=== PATIENT | male | born 1950 | race Caucasian/White ===

== ENCOUNTER 2024-07-20 16:12 | Inpatient (IN) | payer MEDICARE, SELFPAY ==
[2024-07-20] VITALS (16 sets, daily range): BP systolic 101–133; BP diastolic 49–89; BMI 27.5
[2024-07-20 10:58] LABS: % Basophils 0.1 % (0-2); % Lymphocytes 3.2 % (20.5-51.1); % Neutrophils 91.7 % (42.2-75.2); Absolute Immature Granulocytes 0.1 10^3/uL (0-0.05); Absolute Lymphocytes 0.5 10^3/uL (1.2-3.4); Absolute Monocytes 0.6 10^3/uL (0.1-0.6); Absolute Neutrophils 13.4 10^3/uL (1.4-6.5); Hemoglobin 15.2 g/dL (13.0-18.0); Mean Corp Hgb Conc. 34.5 g/dL (33.0-37.0); Mean Corpuscular Hgb 28.7 pg (27.0-31.0); Mean Platelet Volume 12.4 fL (7.4-10.4); Nucleated Red Blood Cells % 0 % (-); Platelet Count 164 10^3/uL (130-400); Red Cell Dist. Width 14.5 % (11.5-14.5); White Blood Cell Count 14.6 10^3/uL (4.8-10.8)
[2024-07-20 11:20] LABS: AST (SGOT) 29 U/L (17-59); Alkaline Phosphatase 66 U/L (38-126); Blood Urea Nitrogen 27 mg/dl (9-20); Calcium 9.1 mg/dl (8.4-10.2); Carbon Dioxide 22 mmol/L (22-30); Chloride 102 mmol/L (98-107); Glucose 277 mg/dl (70-99); Potassium 4.8 mmol/L (3.5-5.1); Sodium 136 mmol/L (135-145); Total Bilirubin 1.4 mg/dl (0.2-1.3); Total Protein 6.7 g/dl (6.3-8.2); eGFR 44.65
[2024-07-20 11:31] LABS: ALT (SGPT) 34 U/L (0-50)
--- NOTE | 2024-07-20 11:32 | ED.GENMED ---
History of Present Illness
General
Chief Complaint: Musculo-Skeletal Complaint
Source: patient and family
Exam Limitations: none
Time Seen by Provider: 07/20/24 11:18
Nursing documentation reviewed up to this point in time: agreed with
History of Present Illness
History of Present Illness:
Patient is a 73-year-old male who presents to the ER for evaluation. Patient was diagnosed with flu on Friday at urgent care. He has had fever and chills and bodyaches for the past several days. He is on Tamiflu. He complains however
increasing weakness in fact last night fell 3 times. He did hit his head and his right shoulder. He does complain of right shoulder pain. Daughter reports he seems very weak. He does have significant cardiac history and has multiple stents. He
is on aspirin Plavix and Eliquis.
Review of Systems
Review of Systems
Allergies reviewed?: Yes
All Other Systems: ROS reviewed and negative except as documented in HPI and ROS
Constitutional: Reports fever, fatigue and chills
EENT: Reports no symptoms
Respiratory: Reports trouble breathing; Denies cough
Cardiac: Reports no symptoms
ABD/GI: Reports no symptoms
: Reports no symptoms
Musculoskeletal: Reports other (right shoulder pain )
Skin: Reports no symptoms
Psychiatric: Reports no symptoms
Phy Exam
General Physical Exam
General Presentation: no apparent distress
General age: appears stated age
General Skin: warm and dry
General Habitus: normal
General Mental: alert
General Hydration: dry mucous membranes
Course
Orders/Labs/Results
Orders:
Orders
07/20/24 Lunch
1800 calorie (15 carb) Diabetic
At Your Request: Full Participation
07/20/24 10:28
Electrocardiogram (*1) Urgent
Reason for Study: Other
Other Reason for Exam: Possible Sepsis
07/20/24 10:[address] [CT Head W/o Iv Contrast] Urgent
Comment:
Reason For Exam: fall on eliquis
EKG- Treatment ONCE
07/20/24 10:30
Cervical Spine wo Contrast CT [CT Cervical Spine W/o Iv Contr] Urgent
Comment:
Reason For Exam: fall
Shoulder, Right 2 Views [CR Shoulder - Right Min 2 View] Urgent
Comment:
Reason For Exam: fall
07/20/24 10:39
Complete Blood Count/With Diff Urgent
Comprehensive Metabolic Panel Urgent
Troponin I Urgent
07/20/24 11:33
IV Insert/Care/Rem.- Treatment PRN
0.9% Sodium Chloride 1000 ml [Nss] 1,000 ml IV BOLUS
07/20/24 11:48
EKG [Electrocardiogram (*1)] Urgent
Reason for Study: Other
Other Reason for Exam: admission, repeat elevated trop
07/20/24 11:51
EKG- Treatment ONCE
07/20/24 11:52
Chest [CR Chest - 2 Views ] Urgent
Comment:
Reason For Exam: weak fever flu
07/20/24 12:45
COVID-19 Antigen Urgent
Source: Nasal Swab
Influenza A+B Rapid Molecular Urgent
CHARMAINE Source: Nasal Swab
Specimen Description:
07/20/24 13:43
Morphine Sulfate 2 mg IV NOW STA
Morphine Sulfate See Dose Instructions .ROUTE .STK-MED ONE
07/20/24 13:47
Acetaminophen [Tylenol] 650 mg PO NOW STA
07/20/24 13:48
Acetaminophen [Tylenol] 650 mg .ROUTE .STK-MED ONE
07/20/24 14:59
CefTRIAXone [Rocephin] 1,000 mg IV NOW STA
07/20/24 15:00
Azithromycin 500 mg/250 ml [Zithromax Infusion] 500 mg in 250 ml IV NOW
07/20/24 15:06
Lactic Acid Q4H
Comment: CANCEL 2nd LACTIC ACID IF 1st LACTIC ACID IS LESS THAN 2
Troponin I Urgent
Blood Culture Q30M
CHARMAINE Source: Blood/Venous
Specimen Description:
Blood Culture Q30M
CHARMAINE Source: Blood/Venous
Specimen Description:
07/20/24 15:37
Admit/Transfer Patient As Directed
Co-Sign Provider:
Level of Care: Inpatient admission
Assign to:: Telemetry
Physician / Group: ryan bianchi
Diagnosis: Pneumonia/flu
Reason for Telemetry: Arrhythmia
Date to Stop Telemetry: 07/23/24
Time to Stop Telemetry: 11:00
Reason for Hospitalization: Pneumonia
Flu
Elevated troponin
Expected length of stay greater than two midnights?: Yes
ELOS- Estimated Length of Stay in days: 2
I certify the patient meets the requirements for IP care: Yes
07/20/24 15:38
PRN Pain Medication Management As Directed
May give lesser potent ordered pain med per pt: Yes
preference::
Protocol:: Medication orders for pain may be administered in a
manner that supports deferring to patient preference
when the pt is:
- Requesting an ordered lesser potent pain medication.
Least to most potent pain medications are defined
as: acetaminophen < NSAID < tramadol < opioids
(morphine, oxycodone, hydromorphone).
- Requesting a lesser dose of the same medication IF
ORDERED.
- Requesting a less intrusive route of administration
if both routes are prescribed by the provider (PO <
IV).
07/20/24 15:41
Code Status As Directed
Resuscitation Status: Full Code
07/20/24 15:51
Echo 2D MMode Color/Doppler Routine
Reason for Study: Elevated troponin
07/20/24 16:06
Morphine Sulfate 2 mg IV Q4HPRN PRN
07/20/24 17:22
UA Reflex to Culture [Urinalysis Reflex To Culture] Routine
Date Specimen was Collected: 07/20/24
Time Specimen was Collected: 17:02
07/20/24 18:04
0.9% Sodium Chloride 1000 ml [Nss] 1,000 ml IV 80 mls/hr
Acetaminophen [Tylenol] 650 mg PO Q4HPRN PRN
Bisacodyl [Dulcolax] 10 mg RECTAL [id number] PRN
Dextrose 50%-Water [Dextrose 50% Syringe] 12.5 grams IV [id number] PRN
Docusate W/Senna [Senokot-S] 1 tablet PO BIDPRN PRN
Glucagon [GlucaGen] 1 mg IM PRN PRN
Insulin Aspart Corrective Low [Novolog Flexpen-Low Resistance] See Protocol SC AC
Ipratropium/Albuterol Sulfate [Duoneb] 3 ml INH R Q4HPRN PRN
Ondansetron Injectable [Zofran] 4 mg IV Q6HPRN PRN
Polyethylene Glycol Powder [Miralax] 17 grams PO DAILYPRN PRN
Rosuvastatin Calcium [Crestor] 40 mg PO QPM
07/20/24 18:04
Activity As Directed
Activity Level: As Tolerated
Bedside Glucose Monitoring As Directed
Frequency: AC&HS
Additional Instructions:: Change to q6h if pt on TPN, tube feeding or not eating
Pneumatic Compression Sleeves As Directed
Type: Knee high
Vital Signs As Directed
Frequency: Per unit guidelines
Ot Eval And Treat Routine
Pt Eval And Treat Routine
Activity Level: With Assistance
DX Deep Vein Thrombosis Video Routine
07/20/24 20:00
Apixaban [Eliquis] 5 mg PO BID
MethylPREDNISolone PF [Solu-Medrol Pf] 40 mg IV Q12H
Ranolazine Extended Release [Ranexa Extended Release] 500 mg PO BID
07/21/24 03:52
Basic Metabolic Panel IN AM
Complete Blood Count/No Diff IN AM
Glycohemoglobin (HgbA1c) IN AM
Magnesium IN AM
07/21/24 08:00
Amlodipine [Norvasc] 5 mg PO DAILY
Clopidogrel Bisulfate [Plavix] 75 mg PO DAILY
Losartan [Cozaar] 25 mg PO DAILY
07/21/24 16:00
Azithromycin 500 mg/250 ml [Zithromax Infusion] 500 mg in 250 ml IV Q24H
CefTRIAXone [Rocephin] 1,000 mg IV Q24H
07/23/24 11:00
DC Protocol for Telemetry ONCE
Abnormal Lab Results
07/20/24 07/20/24 07/20/24
10:39 13:40 15:06
WBC 14.6 H 10^3/uL
(4.8-10.8)
MPV 12.4 H fL
(7.4-10.4)
Abs Immat Gran (auto) 0.1 H 10^3/uL
(0-0.05)
Absolute Neuts (auto) 13.4 H 10^3/uL
(1.4-6.5)
Absolute Lymphs (auto) 0.5 L 10^3/uL
(1.2-3.4)
Immature Gran % 1.0 H %
(0-0.5)
Neutrophils % 91.7 H %
(42.2-75.2)
Lymphocytes % 3.2 L %
(20.5-51.1)
BUN 27 H mg/dl
(9-20)
Creatinine 1.6 H mg/dL
(0.7-1.3)
Glucose 277 H mg/dl
(70-99)
Total Bilirubin 1.4 H mg/dl
(0.2-1.3)
Troponin I 0.130 H* ng/ml 0.136 H* ng/ml
POC Glucose 197 H mg/dl
(70-99)
07/20/24 10:39
07/20/24 10:39
Vital Signs
Initial and Last Documented VS:
Initial Vital Signs
Temp Pulse Resp BP Pulse Ox
99.4 F 80 16 129/60 96
07/20/24 10:22 07/20/24 10:22 07/20/24 10:22 07/20/24 10:22 07/20/24 10:22
Last Documented Vital Signs
Temp Pulse Resp BP Pulse Ox
98.5 F 79 18 115/62 93
07/22/24 16:14 07/22/24 16:14 07/22/24 15:11 07/22/24 15:11 07/22/24 16:14
Induction Heating Equipment Setter consulted with Physician
Induction Heating Equipment Setter consulted with physician?: Yes
Name of Physician Consulted: Jose Luis
MDM/Problems Addressed
Differential Diagnosis Includes:
Not limited to influenza dehydration pneumonia fx
MDM/Problems Addressed:
Patient is a 73-year-old male presents to the ER for evaluation. Patient was diagnosed with flu at urgent care. He has not had a fever for the past several days and was prescribed Tamiflu. He however complains of feeling chills and continues with
weakness. In fact patient fell several times because of weakness. Patient presents with no obvious head injury. CT negative. He does complain of right shoulder pain but reports this pain was there prior to his fall. No acute findings of trauma
on chest x-ray however there is a pneumonia found at the right base.
Patient was found to be febrile here at a temperature of 101.5 with a white count of 14.6 given Tylenol feeling better. He was given fluids. His hemoglobin is stable. His creatinine is elevated 1.6 again he was hydrated but no prior labs for
comparison in addition his cardiac troponin is elevated however he has not having chest pain. Possible stress response versus myocarditis considered. will repeat trop and plan for admission.
*Radiology
Radiology exam reviewed: radiology read reviewed
*Pulse Oximetry
Patient hypoxic: no
*Critical Care Note
Total Time (30-74mins, 75-104mins- exclusive of procedures): Not Applicable
ED Attending Note
-
Portions of this chart may have been created with voice recognition software.� Occasional wrong word or��sound alike� substitutions may have occurred due to the inherent limitations of voice recognition software.
Discharge Plan
Departure
Patient Disposition: Admit
Date of Disposition: 07/20/24
Time of Disposition: 15:05
Admit to: Telemetry
Admit to doctor: hospitalist
Presentation/result/management discussed w/ accepting MD/DO: Hospitalist
Patient with high blood pressure during this ER visit?: No
Condition: Fair
Covid-19: Negative COVID-19
Discharge Problem:
Pneumonia, Elevated troponin, Acute renal insufficiency
Interventions
Interventions:
*Risk Screen - Suicide Last Done: 07/20/24 10:22
*Neglect/Abuse Screening Last Done: 07/20/24 10:22
*ED- Fall Risk Assessment Last Done: 07/20/24 13:34
*ED COVID-19 Vaccine History Last Done: 07/20/24 19:41
*Nursing Disposition Last Done: 07/21/24 18:03
ED-Musculoskeletal Assessment Last Done: 07/20/24 13:34
Discharge Date and Time
Discharge Date/Time: 07/21/24 18:03
[2024-07-20] MEDS: NSS 1000 IV ×2 (12:30→22:45)
[2024-07-20 13:17] LABS: COVID-19 Antigen Negative (Negative)
[2024-07-20 13:42] LABS: Glucose - Point of Care 197 mg/dl (70-99)
[2024-07-20] MEDS: TYLENOL 650 MG PO ×2 (13:50→19:33)
--- NOTE | 2024-07-20 15:11 | HPS.HSE ---
Family Physician
-
Family Physician: [place]
Chief Complaint
-
Increased weakness/fall
History of Present Illness
Patient is a pleasant 73 years old with history of diabetes, hypertension, BPH, A-fib coronary artery disease , who was recently diagnosed with the flu on Friday at urgent care and started on Tamiflu.
Patient has had fever, chills, body aches.
Patient came to the ER today with increased weakness and fall 3 times, denies hitting his head.
Also he was having right shoulder pain
Patient seen and examined at bedside, patient looks tired and confused, complaining of right shoulder pain.
Denies of chest pain or shortness of breath, very mild coughing.
History taken from the patient and family( and daughter at bedside), patient diagnosed with flu on Friday and started Tamiflu, steroid as outpatient.
Has multiple falls at home and he hit his right shoulder.
Patient was having right shoulder pain before fall but worsening after fall.
CT head, cervical spine, x-ray shoulder shows no acute finding.
Chest x-ray right basilar airspace disease.
Medical History
Past Medical History
Past Medical History: Reports Arrhythmia, CAD, HTN, Hypercholesterolemia and NIDDM
Past Surgical History: Reports Cardiac
Social History
Tobacco: Non-smoker
Alcohol: None
Personal:
Living: With Family
Family History
Family History: Not pertinent
Allergies / Home Medications
Allergies reflects when Allergies were last updated in [employer].
Home Medications with original date entered in [employer]
Allergy/Medication List:
Allergies
Allergy/AdvReac Type Severity Reaction Status Date / Time
No Known Allergies Allergy Unverified 07/20/24 10:22
Home Medications
acetaminophen 325 mg tablet (Tylenol) 650 mg PO Q6HPRN PRN mild pain 07/20/24
amlodipine 5 mg tablet (Norvasc) 5 mg PO DAILY 07/20/24
apixaban 5 mg tablet (Eliquis) 5 mg PO BID 07/20/24
clopidogrel 75 mg tablet (Plavix) 75 mg PO DAILY 07/20/24
empagliflozin 25 mg tablet (Jardiance) 25 mg PO DAILY 07/20/24
ezetimibe 10 mg tablet (Zetia) 10 mg PO QPM 07/20/24
losartan 25 mg tablet 25 mg PO DAILY 07/20/24
metformin 500 mg tablet 1,000 mg PO BID 07/20/24
methylprednisolone 4 mg tablets in a dose pack (Medrol (Raj)) 0 mg PO PER PKG DIR 07/20/24
oseltamivir 75 mg capsule (Tamiflu) 75 mg PO BID 07/20/24
ranolazine 500 mg tablet,extended release,12 hr 500 mg PO BID 07/20/24
rosuvastatin 40 mg tablet (Crestor) 40 mg PO QPM 07/20/24
Review of Systems
-
A 12 point ROS was completed and negative except as noted: Yes
Constitutional: Reports Fever, Fatigue and Sleep Disturbance; Denies Weight Gain or Weight Loss
EENT: Denies Tearing, Sore Throat, Mouth Pain, Mouth Swelling or Runny Nose
Respiratory: Reports Cough; Denies Hemoptysis or Trouble Breathing
Cardiac: Denies Chest Pain, Diaphoresis, Palpitations or Syncope
Abdomen/GI: Denies Abdominal Pain, Nausea, Vomiting, Diarrhea, Constipated, Bloody Stools or Black Stools
: Reports Frequency and Incontinence; Denies Dysuria, Flank Pain, Difficulty Voiding, Urgency, Bleeding or Dark Urine
Musculoskeletal: Reports Joint Pain, Muscle Pain and Muscle Stiffness; Denies Joint Swelling or Edema
Skin: Denies Itching or Rash
Neurological: Reports Weakness; Denies Dizzy, Headache or Numbness
Endocrine: Denies Polyuria, Polydipsia or Temp Intolerance
Hematologic/Lymphatic: Denies Bleeding, Swollen Glands or Bruising
Psych: Reports Calm; Denies Depression, Anxiety or Panic Disorder
Physical Exam
Vital Signs
Vital Signs
Temp Pulse Resp BP Pulse Ox
101.5 F H 81 16 101/59 94
07/20/24 14:49 07/20/24 14:49 07/20/24 14:49 07/20/24 14:49 07/20/24 14:49
Physical Exam
General: Well Developed, Well Nourished, Appears in Distress, Pain and Good Appetite; No Chills or Sweats
HEENT: NormoCephalic, Moist mucous membranes, Atraumatic, Good Dentition, PERRLA, Nose Appears Normal and Ears Appear Normal
Respiratory: Rales, Rhonchi and Crackles
Cardiac: S1/S2 and Irregular Rhythm
Breast: Deferred by me
GI: Soft, Non Tender, Non Distended and Normal Bowel Sounds
Genito-urinary: Deferred by me
Musculoskeletal: No Clubbing, No Cyanosis and No Edema
Skin: Warm; No Rash, Jaundice, Ulcers, Lesions or Decubitus Ulcers
Neuro: Awake, Alert, Oriented, AO x 3, No Motor Deficits, Nonfocal/grossly intact and Cranial Nerves Intact
Hematologic/Lymphatic: No Lymphadenopathy
Psych: Calm
Laboratory Results
-
07/20/24 10:39
07/20/24 10:39
Laboratory Results
Total Bilirubin 1.4 mg/dl (0.2-1.3) H 07/20/24 10:39
AST 29 U/L (17-59) 07/20/24 10:39
ALT 34 U/L (0-50) 07/20/24 10:39
Alkaline Phosphatase 66 U/L (38-126) 07/20/24 10:39
Troponin I 0.130 ng/ml H* 07/20/24 10:39
Data Reviewed
-
Diagnostic Radiology: Report Reviewed by me
CT Scan: Report Reviewed by me
Medical Tests (Nuc Med, Echo, EKG etc): Report Reviewed by me
Lab Data: Labs Reviewed by me
Old Records: Reviewed
Impression/Plan
-
IMPRESSION:
Patient is a pleasant 73 years old with history of diabetes, hypertension, BPH, A-fib, coronary artery disease , who was recently diagnosed with the flu on Friday at urgent care and started on Tamiflu.
Patient came to the ER status post fall, weakness, right shoulder pain found to have pneumonia, elevated troponin.
Assessment/plan:
Severe sepsis with acute organ dysfunction secondary to flu/bacterial pneumonia.
Acute organ dysfunction in form of acute metabolic encephalopathy
Patient meets sepsis criteria on admission
WBCs 14.6
Temperature 102.9
Source of infection is flu/bacterial
Started on IV fluid
IV antibiotic in form of Rocephin/Zithromax
Blood culture pending
Urine culture pending
Tylenol for fever
Status post fall with right shoulder pain
Imaging including right shoulder x-ray shows no acute fracture.
CT head and cervical spine shows no acute finding.
Fall precautions.
PT/OT consult.
Social service for discharge planning.
Right shoulder pain
Negative x-ray right show
Possible rotator cuff tear
Will order MRI right shoulder once more stable
Consider Ortho consult versus follow-up with orthopedic
Elevated troponin
Possible type II [place]
Patient denies chest pain
Also with recent flu illness could be myocarditis.
Continue to follow troponin.
Echocardiogram ordered
History of coronary artery disease status post stent
No chest pain.
Echocardiogram ordered.
Continue Plavix/statin
Atrial flutter with controlled heart rate
Continue Eliquis
History of diabetes mellitus
Hold metformin for now and Jardiance
Insulin sliding scale
Diabetic diet
Hemoglobin A1c
CODE STATUS: Full code
DVT prophylaxis: Eliquis
Diet: Diabetic diet.
Total time spent on today's encounter was 75 minutes which included time spent in counseling the patient/family regarding diagnosis and treatment plan as listed above, goals of care, and symptom management. Case was discussed with nursing staff,
specialists, and care coordinators/case management. All labs and imaging personally reviewed by me. Remainder the time spent in detailed review of previous records, lab data, imaging, and other medical provider documentation.
[2024-07-20 15:27] LABS: Lactic Acid 1.8 mmol/L (0.7-2.0)
[2024-07-20 15:42] LABS: Troponin I 0.136 ng/ml
[2024-07-20] MEDS: ROCEPHIN 1000 MG IV (15:44)
[2024-07-20] MEDS: ZITHROMAX INFUSION 250 IV (15:44)
[2024-07-20 17:37] LABS: Urine Albumin 3+ (Neg - Trace); Urine Bilirubin Negative (Negative); Urine Character Clear (Clear); Urine Color Yellow; Urine Glucose 4+ (Negative); Urine Ketone 2+ (Negative); Urine Leukocyte Negative (Negative); Urine Nitrite Negative (Negative); Urine Occult Blood 2+ (Negative); Urine Specific Gravity 1.015 (<1.030); Urine Urobilinogen Negative (Neg - 1+)
[2024-07-20 17:45] LABS: Urine Squamous Cell 0-2 /LPF (Few)
[2024-07-20 17:46] LABS: Urine White Cell 0-2 /HPF (0-5)
[2024-07-20 17:47] LABS: Urine Bacteria Many (Negative)
[2024-07-20 18:20] LABS: Glucose - Point of Care 392 mg/dl (70-99)
[2024-07-20] MEDS: ELIQUIS 5 MG PO (19:33)
[2024-07-20 19:53] LABS: Glucose - Point of Care 323 mg/dl (70-99)
[2024-07-20] MEDS: NOVOLOG FLEXPEN-LOW RESISTANCE SC (22:40)
[2024-07-20] MEDS: CRESTOR 40 MG PO (22:44)
[2024-07-20] MEDS: TAMIFLU 30 MG PO (22:44)
[2024-07-20] MEDS: RANEXA EXTENDED RELEASE 500 MG PO (22:44)
[2024-07-20] MEDS: SOLU-MEDROL PF 40 MG IV (22:44)
[2024-07-20 22:59] LABS: Glucose - Point of Care 214 mg/dl (70-99)
[2024-07-20] MEDS: ZETIA 10 MG PO (23:13)
[2024-07-21] VITALS (19 sets, daily range): BP systolic 100–127; BP diastolic 52–67; PULSE 77; O2SAT 95–97
[2024-07-21] MEDS: MORPHINE SULFATE 2 MG IV (00:42)
[2024-07-21] MEDS: TYLENOL 650 MG PO ×3 (03:50→23:11)
[2024-07-21 04:20] LABS: Hematocrit 38.7 % (39.0-52.0); Hemoglobin 13.4 g/dL (13.0-18.0); Mean Corp Hgb Conc. 34.6 g/dL (33.0-37.0); Mean Corpuscular Hgb 28.8 pg (27.0-31.0); Mean Platelet Volume 12.2 fL (7.4-10.4); Platelet Count 129 10^3/uL (130-400); Red Blood Cell Count 4.66 10^6/uL (4.70-6.10); Red Cell Dist. Width 14.6 % (11.5-14.5); White Blood Cell Count 14.3 10^3/uL (4.8-10.8)
[2024-07-21 04:32] LABS: Blood Urea Nitrogen 29 mg/dl (9-20); Calcium 8.2 mg/dl (8.4-10.2); Carbon Dioxide 18 mmol/L (22-30); Chloride 106 mmol/L (98-107); Estimated Creatinine Clearance 40 ml/min; Glucose 220 mg/dl (70-99); Magnesium 2.3 mg/dl (1.6-2.3); Potassium 4.9 mmol/L (3.5-5.1); Sodium 135 mmol/L (135-145); eGFR 52.41
[2024-07-21 06:45] LABS: Troponin I 0.189 ng/ml
--- NOTE | 2024-07-21 07:00 | PTCARENOTE ---
Pt's troponin 0.189, asymptomatic. House BRILLIANDEER LOOPER made aware. Report given to day shift.
[2024-07-21 08:26] LABS: Glucose - Point of Care 211 mg/dl (70-99)
[2024-07-21] MEDS: NORVASC 5 MG PO (08:40)
[2024-07-21] MEDS: COZAAR 25 MG PO (08:40)
[2024-07-21] MEDS: PLAVIX 75 MG PO (08:40)
[2024-07-21] MEDS: TAMIFLU 30 MG PO ×2 (08:40→21:05)
[2024-07-21] MEDS: RANEXA EXTENDED RELEASE 500 MG PO ×2 (08:40→21:04)
[2024-07-21] MEDS: ELIQUIS 5 MG PO ×2 (08:40→21:05)
[2024-07-21] MEDS: SOLU-MEDROL PF 40 MG IV (08:40)
[2024-07-21] MEDS: NOVOLOG FLEXPEN-LOW RESISTANCE 2 UNITS SC (08:41)
[2024-07-21 09:05] LABS: Glycohemoglobin (HgbA1c) 7.2 % (4.0-5.6)
--- NOTE | 2024-07-21 10:50 | PTCARENOTE ---
Pt AOx3/conversive/pleasant. Pt states he is feeling much better today. Able to wean off oxygen and is currently 96% room air. Pt ate 100% of breakfast.
--- NOTE | 2024-07-21 11:30 | W.PN.HOSP.TC ---
Today's Communication/Plan
-
MRI right shoulder
Assessment / Plan
Assessment / Plan
Impression:
Patient is a pleasant 73 years old with history of diabetes, hypertension, BPH, A-fib, coronary artery disease , who was recently diagnosed with the flu on Friday at urgent care and started on Tamiflu.
Patient came to the ER status post fall, weakness, right shoulder pain found to have pneumonia, elevated troponin.
echo shows:
1. Left ventricle: Normal size and function with an estimated ejection
fraction of 50%. Mild inferolateral hypokinesis. Mild concentric LVH. Stage
I diastolic dysfunction
2. Right ventricle: Normal
3. Atria: Moderate left atrial dilation and mild right atrial dilation
4. Mitral valve: Mild mitral regurgitation
5. Aortic valve: Trileaflet. Aortic valve sclerosis. Trace aortic
insufficiency
6. Tricuspid valve: Mild to moderate tricuspid regurgitation with estimated
pulmonary artery systolic pressures of 55-60 mmHg consistent with moderate
pulmonary hypertension
7. No prior study for comparison
Assessment/plan:
Severe sepsis with acute organ dysfunction secondary to flu/bacterial pneumonia.
Acute organ dysfunction in form of acute metabolic encephalopathy
Patient meets sepsis criteria on admission
WBCs 14.6
Temperature 102.9
Source of infection is flu/bacterial
Started on IV fluid
IV antibiotic in form of Rocephin/Zithromax
Blood culture pending
Urine culture pending
Tylenol for fever
Status post fall with right shoulder pain
Imaging including right shoulder x-ray shows no acute fracture.
CT head and cervical spine shows no acute finding.
Fall precautions.
PT/OT consult.
Social service for discharge planning.
Right shoulder pain
Negative x-ray right show
Possible rotator cuff tear
Will order MRI right shoulder.
Consider Ortho consult versus follow-up with orthopedic
Elevated troponin
Possible type II [place]
Patient denies chest pain
Also with recent flu illness could be myocarditis.
Continue to follow troponin.
Echocardiogram shows:
1. Left ventricle: Normal size and function with an estimated ejection
fraction of 50%. Mild inferolateral hypokinesis. Mild concentric LVH. Stage
I diastolic dysfunction
2. Right ventricle: Normal
3. Atria: Moderate left atrial dilation and mild right atrial dilation
4. Mitral valve: Mild mitral regurgitation
5. Aortic valve: Trileaflet. Aortic valve sclerosis. Trace aortic
insufficiency
6. Tricuspid valve: Mild to moderate tricuspid regurgitation with estimated
pulmonary artery systolic pressures of 55-60 mmHg consistent with moderate
pulmonary hypertension
7. No prior study for comparison
History of coronary artery disease status post stent
No chest pain.
Echocardiogram ordered.
Continue Plavix/statin
Atrial flutter with controlled heart rate
Continue Eliquis
History of diabetes mellitus
Hold metformin for now and Jardiance
Insulin sliding scale
Diabetic diet
Hemoglobin A1c 7.2
CODE STATUS: Full code
DVT prophylaxis: Eliquis
Diet: Diabetic diet.
Family communication: Discussed with and daughter at bedside
Disposition: Continue antibiotic, MRI right shoulder
Total time spent on today's encounter was 65 minutes which included time spent in counseling the patient/family regarding diagnosis and treatment plan as listed above, goals of care, and symptom management. Case was discussed with nursing staff,
specialists, and care coordinators/case management. All labs and imaging personally reviewed by me. Remainder the time spent in detailed review of previous records, lab data, imaging, and other medical provider documentation.
Anticipated Discharge: 24 - 48 hours
Subjective/Interval History
-
Date of Service: July 21, 2024
Patient seen and examined at bedside, denies any chest pain , shortness of breath Improved, no abdominal pain, no nausea, no vomiting, no diarrhea or constipation.
Discussed with at bedside.
Objective Data
-
Labs:
Laboratory Results
07/21/24
03:52
WBC 14.3 H
Hgb 13.4
Hct 38.7 L
Plt Count 129 L D
Sodium 135
Potassium 4.9
Chloride 106
Carbon Dioxide 18 L
BUN 29 H
Creatinine 1.4 H
Glucose 220 H
Calcium 8.2 L
Vital Signs:
Vital Signs
Temp Pulse Resp BP Pulse Ox
98.3 F 75 16 125/67 96
07/21/24 10:49 07/21/24 10:49 07/21/24 10:49 07/21/24 10:49 07/21/24 10:49
I&O
07/20/24 07/21/24 07/22/24
06:59 06:59 06:59
Output Total 400 / 400 250 / 250
Balance -400 / -400 -250 / -250
Physical Exam
-
General: Well Developed, Well Nourished, No Apparent Distress and Comfortable
HEENT: Normocephalic, Atraumatic, Moist Mucous Membranes, No Ptosis, PERRLA and Nose Appears Normal
Respiratory: Rales, Rhonchi and Crackles
Cardiac: Regular Rhythm and S1/S2
Breast: Deferred by me
GI: Soft, Nontender, Nondistended and Normal Bowel Sounds
Genito-urinary: No Costovertebral Tender
Musculoskeletal: No Clubbing, No Cyanosis and Other (Right shoulder pain with limitation of range of movement)
Skin: Warm
Neuro: Awake, Alert, Oriented, AO x 3 and No Motor Deficits
Psych: Calm
Data Reviewed
-
Diagnostic Radiology: Image personally visualized and interpreted and Report Reviewed by me
CT Scan: Image personally visualized and interpreted and Report Reviewed by me
Ultrasound: Image personally visualized and interpreted and Report Reviewed by me
MRI: Image personally visualized and interpreted and Report Reviewed by me
Medical Tests (Nuc Med, Echo etc): Image personally visualized and interpreted and Report Reviewed by me
Labs: Labs Reviewed by me
Old Records: Reviewed
[2024-07-21 12:31] LABS: Glucose - Point of Care 354 mg/dl (70-99)
[2024-07-21] MEDS: NSS 1000 IV (12:42)
[2024-07-21] MEDS: NOVOLOG FLEXPEN-LOW RESISTANCE 5 UNITS SC (12:42)
--- NOTE | 2024-07-21 12:43 | CM ---
CM met with pt and spouse bedside- pt slept through meeting
Pt and spouse reside in a 2[address] with 2STE, 1st floor setup
Pt is indep at baselines
Denies DMEs and financial insecurities
Pt is indep with his ADLs, drives+
No hx with VN/SNF
Typically receives care at [facility]
PCP- [place]
Rx- [facility]
VN recs by therapy
Referral to [facility] per spouse request
Pt will likely need new WW issued prior to dc
Discharge Disposition- home with [facility], likely new WW as well
[2024-07-21] MEDS: DUONEB 3 ML INH (14:34)
--- NOTE | 2024-07-21 14:38 | PTCARENOTE ---
Pt feeling sob, SPO2 down to 88%, audible expiratory wheezing. Placed back on nasal cannula at 2L and given neb treatment. Pt also w/ temp of 101 - tylenol given.
[2024-07-21 15:28] LABS: Troponin I 0.086 ng/ml
[2024-07-21] MEDS: ZITHROMAX INFUSION 250 IV (15:52)
[2024-07-21] MEDS: ROCEPHIN 1000 MG IV (15:52)
[2024-07-21 17:30] LABS: Glucose - Point of Care 346 mg/dl (70-99)
[2024-07-21] MEDS: ZETIA 10 MG PO (18:29)
[2024-07-21] MEDS: CRESTOR 40 MG PO (18:29)
[2024-07-21] MEDS: NOVOLOG FLEXPEN-LOW RESISTANCE 4 UNITS SC (18:30)
[2024-07-21] MEDS: MELATONIN 5 MG PO (21:04)
[2024-07-21 21:32] LABS: Troponin I 0.065 ng/ml
[2024-07-21 21:57] LABS: Glucose - Point of Care 353 mg/dl (70-99)
[2024-07-22 03:00] VITALS: BP 114/69
[2024-07-22] MEDS: NSS 1000 IV (06:10)
[2024-07-22] MEDS: TYLENOL 650 MG PO ×3 (06:11→18:43)
--- NOTE | 2024-07-22 06:28 | PTCARENOTE ---
Pt c/o being cold. Rigors. Oral temp 98.0. c/o R shoulder pain. Tylenol administered (refer to [facility]). NSS at 80 via #22 RH. Call ute w/in reach.
[2024-07-22 07:18] VITALS: BP 125/62
[2024-07-22 07:34] LABS: Glucose - Point of Care 256 mg/dl (70-99)
[2024-07-22] MEDS: DUONEB 3 ML INH ×2 (07:35→14:11)
[2024-07-22] MEDS: COZAAR 25 MG PO (08:15)
[2024-07-22] MEDS: RANEXA EXTENDED RELEASE 500 MG PO ×2 (08:15→19:51)
[2024-07-22] MEDS: ELIQUIS 5 MG PO ×2 (08:15→19:51)
[2024-07-22] MEDS: TAMIFLU 30 MG PO ×2 (08:16→19:51)
[2024-07-22] MEDS: PLAVIX 75 MG PO (08:16)
[2024-07-22 08:30] LABS: Hemoglobin 13.9 g/dL (13.0-18.0); Mean Corp Hgb Conc. 34.8 g/dL (33.0-37.0); Mean Corpuscular Hgb 28.4 pg (27.0-31.0); Mean Corpuscular Volume 81.6 fL (80.0-94.0); Mean Platelet Volume 12.6 fL (7.4-10.4); Platelet Count 141 10^3/uL (130-400); Red Cell Dist. Width 14.9 % (11.5-14.5); White Blood Cell Count 12.8 10^3/uL (4.8-10.8)
[2024-07-22 08:54] LABS: Troponin I 0.068 ng/ml
--- NOTE | 2024-07-22 09:09 | PN.CDI ---
CDI
- -
CDI:
Physician Documentation Request
Admit Date: 07/20/24 16:12
Dear Doctor Charity,
Please review the following and provide your response in the progress notes.
Clinical Indicators:
The diagnosis of bifascicular block was included in the signed 07/20 EKG
- 07/20 EKG 'Atrial flutter with 3:1 A-V conduction'
- 'Right bundle branch block'
- 'Left Anterior Fascicular block'
- 'Bifascicular block'
Please indicate in your progress notes if you are in agreement that the above diagnosis is valid for this patient:
____ - Bifascicular block is a valid diagnosis (Please include it in your progress notes)
____ - Bifascicular block is not a valid diagnosis for this patient
____ - Other
Use of terms such as suspected, likely, concern for, or probable are acceptable for a diagnosis that is being evaluated, monitored or treated as if it exists and can be coded in the inpatient setting, when documented at the time of discharge.
Thank you,
Jaime Williamson RN
CDI Specialist
Please use your independent medical judgment in providing your response.
[2024-07-22 09:19] LABS: Blood Urea Nitrogen 42 mg/dl (9-20); Calcium 7.9 mg/dl (8.4-10.2); Carbon Dioxide 19 mmol/L (22-30); Chloride 105 mmol/L (98-107); Estimated Creatinine Clearance 43 ml/min; Glucose 247 mg/dl (70-99); Potassium 4.8 mmol/L (3.5-5.1); Sodium 134 mmol/L (135-145); eGFR 57.29
[2024-07-22] MEDS: NOVOLOG FLEXPEN-LOW RESISTANCE 3 UNITS SC (09:51)
--- NOTE | 2024-07-22 10:53 | VNURNOTE ---
Attempted to see patient around 0900, he was sound asleep. Call placed to patient's daughter, listed as primary contact. She could not talk, she asked liaison to speak with pt's , she will be visiting. Spoke w/patient's spouse. As of now,
she doesn't think pt will be homebound. She stated pt is planning on returning to work on /around Friday. Recommended that if she and patient change their mind about VN, they can follow up with PCP and he can order VN as outpt.
Pt will not be homebound, no referral placed.
[2024-07-22 11:28] VITALS: BP 127/73
[2024-07-22 11:34] LABS: Glucose - Point of Care 339 mg/dl (70-99)
--- NOTE | 2024-07-22 11:36 | W.PN.HOSP.TC ---
Today's Communication/Plan
-
Orthopedic consult.
Assessment / Plan
Assessment / Plan
Impression:
Patient is a pleasant 73 years old with history of diabetes, hypertension, BPH, A-fib, coronary artery disease , who was recently diagnosed with the flu on Friday at urgent care and started on Tamiflu.
Patient came to the ER status post fall, weakness, right shoulder pain found to have pneumonia, elevated troponin.
echo shows:
1. Left ventricle: Normal size and function with an estimated ejection
fraction of 50%. Mild inferolateral hypokinesis. Mild concentric LVH. Stage
I diastolic dysfunction
2. Right ventricle: Normal
3. Atria: Moderate left atrial dilation and mild right atrial dilation
4. Mitral valve: Mild mitral regurgitation
5. Aortic valve: Trileaflet. Aortic valve sclerosis. Trace aortic
insufficiency
6. Tricuspid valve: Mild to moderate tricuspid regurgitation with estimated
pulmonary artery systolic pressures of 55-60 mmHg consistent with moderate
pulmonary hypertension
7. No prior study for comparison
Patient continued to have right shoulder pain, orthopedic consulted
Assessment/plan:
Severe sepsis with acute organ dysfunction secondary to flu/bacterial pneumonia.
Acute organ dysfunction in form of acute metabolic encephalopathy
Patient meets sepsis criteria on admission
WBCs 14.6
Temperature 102.9
Source of infection is flu/bacterial
Started on IV fluid
IV antibiotic in form of Rocephin/Zithromax
Blood culture NTD
Urine culture NTD
Tylenol for fever
Status post fall with right shoulder pain
Imaging including right shoulder x-ray shows no acute fracture.
CT head and cervical spine shows no acute finding.
Fall precautions.
PT/OT consult.
Social service for discharge planning.
Right shoulder pain
Negative x-ray right show
Possible rotator cuff tear
Patient still having right shoulder pain and limitation of movement.
Orthopedic consulted.
Elevated troponin
Possible type II [place]
Patient denies chest pain
Also with recent flu illness could be myocarditis.
Continue to follow troponin.
Echocardiogram shows:
1. Left ventricle: Normal size and function with an estimated ejection
fraction of 50%. Mild inferolateral hypokinesis. Mild concentric LVH. Stage
I diastolic dysfunction
2. Right ventricle: Normal
3. Atria: Moderate left atrial dilation and mild right atrial dilation
4. Mitral valve: Mild mitral regurgitation
5. Aortic valve: Trileaflet. Aortic valve sclerosis. Trace aortic
insufficiency
6. Tricuspid valve: Mild to moderate tricuspid regurgitation with estimated
pulmonary artery systolic pressures of 55-60 mmHg consistent with moderate
pulmonary hypertension
7. No prior study for comparison
History of coronary artery disease status post stent
No chest pain.
Echocardiogram ordered.
Continue Plavix/statin
Atrial flutter with controlled heart rate
Continue Eliquis
History of diabetes mellitus
Hold metformin for now and Jardiance
Insulin sliding scale
Diabetic diet
Hemoglobin A1c 7.2
CODE STATUS: Full code
DVT prophylaxis: Eliquis
Diet: Diabetic diet.
Family communication: Discussed with and daughter at bedside
Disposition: Continue antibiotic, orthopedic consult.
Total time spent on today's encounter was 65 minutes which included time spent in counseling the patient/family regarding diagnosis and treatment plan as listed above, goals of care, and symptom management. Case was discussed with nursing staff,
specialists, and care coordinators/case management. All labs and imaging personally reviewed by me. Remainder the time spent in detailed review of previous records, lab data, imaging, and other medical provider documentation.
Anticipated Discharge: 24 - 48 hours
Subjective/Interval History
-
Date of Service: July 22, 2024
Patient seen and examined at bedside, at bedside, patient still complaining of right shoulder pain, orthopedic consulted.
Still with shortness of breath and coughing, patient with episodes of hypoxia required 4 L of nasal cannula and oxygen sat was 96%.
but When examined the patient who was 93% on room air.
Objective Data
-
Labs:
Laboratory Results
07/22/24 07/22/24
08:06 08:07
WBC 12.8 H
Hgb 13.9
Hct 40.0
Plt Count 141
Sodium 134 L
Potassium 4.8
Chloride 105
Carbon Dioxide 19 L
BUN 42 H
Creatinine 1.3
Glucose 247 H
Calcium 7.9 L
Vital Signs:
Vital Signs
Temp Pulse Resp BP Pulse Ox
98.3 F 78 17 127/73 96
07/22/24 11:28 07/22/24 11:28 07/22/24 11:28 07/22/24 11:28 07/22/24 11:28
I&O
07/21/24 07/22/24 07/23/24
06:59 06:59 06:59
Intake Total 800 / 800
Output Total 400 / 400 1450 / 1450
Balance -400 / -400 -650 / -650
Physical Exam
-
General: Well Developed, Well Nourished, No Apparent Distress and Comfortable
HEENT: Normocephalic, Atraumatic, Moist Mucous Membranes, No Ptosis, PERRLA and Nose Appears Normal
Respiratory: Rales, Rhonchi and Crackles
Cardiac: Regular Rhythm and S1/S2
Breast: Deferred by me
GI: Soft, Nontender, Nondistended and Normal Bowel Sounds
Genito-urinary: No Costovertebral Tender
Musculoskeletal: No Clubbing, No Cyanosis and Other (Right shoulder pain with limitation of range of movement)
Skin: Warm
Neuro: Awake, Alert, Oriented, AO x 3 and No Motor Deficits
Psych: Calm
Data Reviewed
-
Diagnostic Radiology: Image personally visualized and interpreted and Report Reviewed by me
CT Scan: Image personally visualized and interpreted and Report Reviewed by me
Ultrasound: Image personally visualized and interpreted and Report Reviewed by me
MRI: Image personally visualized and interpreted and Report Reviewed by me
Medical Tests (Nuc Med, Echo etc): Image personally visualized and interpreted and Report Reviewed by me
Labs: Labs Reviewed by me
Old Records: Reviewed
[2024-07-22] MEDS: NOVOLOG FLEXPEN-LOW RESISTANCE 4 UNITS SC (13:11)
--- NOTE | 2024-07-22 14:29 | PTCARENOTE ---
Pt c/o sob, is tachypneic, SPO2 down to 90% on 4L. Pt also w/ spike in temp to 103.1 oral. Tylenol given. RT called and pt given nebulizer but took it off after half of the treatment bc it was making him feel more sob. Pt now 92% on 5L nc.
[2024-07-22 15:11] VITALS: BP 115/62
--- NOTE | 2024-07-22 15:32 | CM ---
Chart reviewed and plan is to home with [facility] when stable.
Plan; Home no needs.
[2024-07-22] MEDS: ZITHROMAX INFUSION 250 IV (16:00)
[2024-07-22] MEDS: ROCEPHIN 1000 MG IV (16:00)
--- NOTE | 2024-07-22 16:50 | CON.ORTHO ---
Consultation
-
Date/Time Consultation Requested: 07/22/2024 1056
Date/Time Consultation Performed: 07/22/2024 1530
Requesting Provider: Van Nash
Performing Provider: Yoav Lorenz
Reason for Consultation: R shoulder pain
Consultation - Orthopedics
History
Orthopedic Surgery Note
CC: R shoulder pain
HPI: 73-year-old male presented to [facility] emergency department with weakness and falls. The patient reports about 2 weeks of right shoulder pain in the deltoid region. He has weakness with active elevation. He reports that he may have struck
the shoulder while he was falling. He denies chronic shoulder pain. No distal numbness or tingling. He is recovering from the flu is being treated by the medical team for this.
PMH/PSH: DM, HTN, BPH, afib, CAD
Medications: reviewed
Family History: Family history was reviewed. Noncontributory
Social history: Nonsmoker, no illicit drugs
Exam
General appearance: Pleasant. No acute distress.
Head: Normocephalic/atraumatic
Nose: No lesions or discharge.
Skin: No obvious rashes or open wounds
Lungs: nasal cannula in place
Musculoskeletal:
RUE:
skin intact without open wounds
no shoulder effusion
weakness with shoulder ER, abduction, and forward flexion c/w pseudoparalysis
full active elbow motion
fires r/u/m/ain/pin
sensation intact to light touch r/u/m
Fingers wwp
No tenderness over bony prominences or with passive joint ROM
Imaging:
Right shoulder x-rays performed 07/20/2024 reviewed by me. They show signs of mild glenohumeral osteoarthritis. No signs of displaced fracture. The humeral head is concentrically reduced.
Assessmen and Plan:
73-year-old male with 2 to 3 weeks of right shoulder pain along the deltoid region along with pseudoparalysis, weakness with active elevation. He has weakness with rotator cuff testing. X-rays showed no signs of fracture. We discussed that his
pain and weakness may be related to a rotator cuff tear. We discussed following up as an outpatient once he has recovered from the flu and to discuss further evaluation including likely right shoulder MRI. He may follow-up with our shoulder team
including Dr. Ramos, Dr. Issa, Dr. Avilez, or Dr. Byrd once he's medically recovered. We discussed sling for comfort. Recommend pain control with tylenol, nsaids if able.
Yoav Lorenz MD
> 75 minutes was spent reviewing the clinical information, evaluating the patient, and formulating clinical plan.
Allergies / Home Medications
Allergy/AdvReac Type Severity Reaction Status Date / Time
No Known Allergies Allergy Unverified 07/20/24 10:22
�Medication �Instructions �Recorded
acetaminophen 325 mg tablet 650 mg PO Q6HPRN PRN mild pain 07/20/24
(Tylenol)
amlodipine 5 mg tablet (Norvasc) 5 mg PO DAILY 07/20/24
apixaban 5 mg tablet (Eliquis) 5 mg PO BID 07/20/24
clopidogrel 75 mg tablet (Plavix) 75 mg PO DAILY 07/20/24
empagliflozin 25 mg tablet 25 mg PO DAILY 07/20/24
(Jardiance)
losartan 25 mg tablet 25 mg PO DAILY 07/20/24
metformin 500 mg tablet 1,000 mg PO BID 07/20/24
methylprednisolone 4 mg tablets in 0 mg PO PER PKG DIR 07/20/24
a dose pack (Medrol (Raj))
oseltamivir 75 mg capsule (Tamiflu) 75 mg PO BID 07/20/24
ranolazine 500 mg tablet,extended 500 mg PO BID 07/20/24
release,12 hr
rosuvastatin 40 mg tablet (Crestor) 40 mg PO QPM 07/20/24
cholecalciferol (vitamin D3) 50 50 mcg PO DAILY 07/21/24
mcg (2,000 unit) capsule (Vitamin
D3)
levocetirizine 5 mg tablet 5 mg PO QPM 07/21/24
nitroglycerin 0.4 mg sublingual 0.4 mg sublingual Q5M PRN chest 07/21/24
tablet pain
Vital Signs / Lab Results
Temp Pulse Resp BP Pulse Ox
98.5 F 79 18 115/62 93
07/22/24 16:14 07/22/24 16:14 07/22/24 15:11 07/22/24 15:11 07/22/24 16:14
07/22/24 08:07
07/22/24 08:06
[2024-07-22 17:56] LABS: Glucose - Point of Care 208 mg/dl (70-99)
[2024-07-22] MEDS: CRESTOR 40 MG PO (18:02)
[2024-07-22] MEDS: ZETIA 10 MG PO (18:02)
[2024-07-22] MEDS: NOVOLOG FLEXPEN-LOW RESISTANCE 2 UNITS SC (18:02)
[2024-07-22 19:40] VITALS: BP 132/70
[2024-07-22 21:33] LABS: Glucose - Point of Care 383 mg/dl (70-99)
[2024-07-22 23:00] VITALS: BP 104/58
[2024-07-23] MEDS: DUONEB 3 ML INH (01:36)
[2024-07-23] MEDS: FLUSH (NSS) 4 FLUSH IV (01:56)
[2024-07-23] MEDS: MORPHINE SULFATE 2 MG IV (01:56)
--- NOTE | 2024-07-23 02:45 | PTCARENOTE ---
episode of shortness of breath rhonchi/rales bilaterally-94% 0n 4 liters . rt gave tx. morphine given for shoulder pain. pt breathing better shoulder pain relieved
[2024-07-23 03:05] VITALS: BP 121/64
[2024-07-23 07:32] VITALS: BP 114/71
[2024-07-23 07:36] LABS: Glucose - Point of Care 226 mg/dl (70-99)
[2024-07-23] MEDS: RANEXA EXTENDED RELEASE 500 MG PO (08:02)
[2024-07-23] MEDS: NOVOLOG FLEXPEN-LOW RESISTANCE 2 UNITS SC ×2 (08:02→12:39)
[2024-07-23] MEDS: ELIQUIS 5 MG PO (08:02)
[2024-07-23] MEDS: PLAVIX 75 MG PO (08:02)
[2024-07-23] MEDS: COZAAR 25 MG PO (08:03)
[2024-07-23] MEDS: TAMIFLU 30 MG PO (08:03)
[2024-07-23] MEDS: DESENEX/MITRAZOL/ZEASORB 1 APPLIC TOPICAL (08:03)
[2024-07-23 08:08] LABS: Hematocrit 40.1 % (39.0-52.0); Hemoglobin 13.8 g/dL (13.0-18.0); Mean Corp Hgb Conc. 34.4 g/dL (33.0-37.0); Mean Corpuscular Hgb 28.5 pg (27.0-31.0); Mean Corpuscular Volume 82.7 fL (80.0-94.0); Mean Platelet Volume 12.1 fL (7.4-10.4); Platelet Count 173 10^3/uL (130-400); Red Blood Cell Count 4.85 10^6/uL (4.70-6.10); Red Cell Dist. Width 14.9 % (11.5-14.5); White Blood Cell Count 9.4 10^3/uL (4.8-10.8)
[2024-07-23 08:09] LABS: Blood Urea Nitrogen 31 mg/dl (9-20); Calcium 7.9 mg/dl (8.4-10.2); Carbon Dioxide 24 mmol/L (22-30); Chloride 102 mmol/L (98-107); Estimated Creatinine Clearance 50 ml/min; Glucose 218 mg/dl (70-99); Potassium 4.7 mmol/L (3.5-5.1); Sodium 134 mmol/L (135-145); eGFR > 60.00
--- NOTE | 2024-07-23 10:55 | CON.PUL ---
Consultation
Consultation Request
Date/Time Consultation Requested: 07/23/2024-10:30 AM
Date/Time Consultation Performed: 07/23/2024-11:30 AM
Requesting Provider: Hospitalist
Performing Provider: Dr. Martinez
Reason for Consultation: Shortness of breath
Medical History
-
Chief Complaint: Shortness of breath/Pneumonia
History of Present Illness:
73-year-old lifelong nonsmoking male with history of hypertension, hyperlipidemia, diabetes and atrial fibrillation was not vaccinated for influenza this year and presented with fevers, chills, body aches noted to have pneumonia and
influenza-pulmonary consulted for pneumonia 07/23/24. The patient feels much improved and is asking when he can go home. He offers no complaints of chest pain, shortness of breath at rest, chest congestion, productive cough, pertussis, abdominal
pain, nausea, focal weakness or lower extremity swelling.
Past Medical History
Past Medical History: None ( Hypertension. Hyperlipidemia. Diabetes. CAD. Atrial fibrillation.)
Social History
Tobacco: Non-smoker
Alcohol: None
Drug: None
Personal:
Living: With Family
Occupational Exposures: No known asbestos exposure
Environmental Exposures: . No known tuberculosis exposure
Family History
Family History: Reviewed & Not Pertinent
Allergies / Home Medications
Allergies
Allergy/AdvReac Type Severity Reaction Status Date / Time
No Known Allergies Allergy Unverified 07/20/24 10:22
Home Medications
�Medication �Instructions �Recorded �Confirmed �Last Taken �Type
acetaminophen 325 mg tablet 650 mg PO Q6HPRN PRN mild pain 07/20/24 07/21/24 07/20/24 History
(Tylenol)
amlodipine 5 mg tablet (Norvasc) 5 mg PO DAILY 07/20/24 07/21/24 Unknown History
apixaban 5 mg tablet (Eliquis) 5 mg PO BID 07/20/24 07/21/24 Unknown History
clopidogrel 75 mg tablet (Plavix) 75 mg PO DAILY 07/20/24 07/21/24 Unknown History
empagliflozin 25 mg tablet 25 mg PO DAILY 07/20/24 07/21/24 Unknown History
(Jardiance)
losartan 25 mg tablet 25 mg PO DAILY 07/20/24 07/21/24 Unknown History
metformin 500 mg tablet 1,000 mg PO BID 07/20/24 07/21/24 Unknown History
methylprednisolone 4 mg tablets in 0 mg PO PER PKG DIR 07/20/24 07/21/24 Unknown History
a dose pack (Medrol (Raj))
oseltamivir 75 mg capsule (Tamiflu) 75 mg PO BID 07/20/24 07/21/24 Unknown History
ranolazine 500 mg tablet,extended 500 mg PO BID 07/20/24 07/21/24 Unknown History
release,12 hr
rosuvastatin 40 mg tablet (Crestor) 40 mg PO QPM 07/20/24 07/21/24 Unknown History
cholecalciferol (vitamin D3) 50 50 mcg PO DAILY 07/21/24 07/21/24 Unknown History
mcg (2,000 unit) capsule (Vitamin
D3)
levocetirizine 5 mg tablet 5 mg PO QPM 07/21/24 07/21/24 Unknown History
nitroglycerin 0.4 mg sublingual 0.4 mg sublingual Q5M PRN chest 07/21/24 07/21/24 Unknown History
tablet pain
Review of Systems
-
Unable to Obtain full review of systems at this time due to: Other ( Per HPI)
Vitals / Labs / Diagnostic Testing
Vital Signs
Temp Pulse Resp BP Pulse Ox
98.3 F 82 16 114/71 94
07/23/24 07:32 07/23/24 08:03 07/23/24 07:32 07/23/24 08:03 07/23/24 08:25
Lab Data
07/23/24 07:30
07/23/24 07:30
Microbiology
07/20/24 15:06 Blood/Venous Blood Culture - Preliminary
No Growth in 48 hours- Final report to follow
07/20/24 15:06 Blood/Venous Blood Culture - Preliminary
No Growth in 48 hours- Final report to follow
07/20/24 17:22 Urine Urine Culture - Final
NO GROWTH
07/20/24 12:45 Nasal Swab Influenza Types A & B (MOSHE) - Final
Negative for Influenza A & B, NAAT
Negative results must be combined with clinical observations
and patient history.
Nucleic Acid Amplification test (NAAT)performed on the
[employer] platform.
Diagnostic Testing:
Physical Exam
-
Exam:
Well-nourished and well-developed in no apparent distress
HEENT-atraumatic, normocephalic
Neck-supple, no JVD, no bruit
Heart-regular rate and rhythm-no murmurs, rubs or gallops
Chest with image breath sounds, crackles at the right base and no wheezes
Abdomen-soft, nontender, nondistended, no hepatosplenomegaly.
Back without tenderness
Extremities-no cyanosis, clubbing, edema and good peripheral pulses
Integument-intact, no rashes, lesions or ecchymosis
Neurology-alert and oriented, nonfocal motor and sensory exam
Assessment
-
73-year-old lifelong nonsmoking male with history of hypertension, hyperlipidemia, diabetes and atrial fibrillation was not vaccinated for influenza this year and presented with fevers, chills, body aches noted to have pneumonia and
influenza-pulmonary consulted for pneumonia 07/23/24.
.
Community acquired pneumonia.
Influenza.
Status post fall/right shoulder pain.
Elevated troponin.
Leukocytosis
Mild hyponatremia.
Hyperglycemia
Conditions present prior to admission:
Hypertension.
Hyperlipidemia.
Diabetes.
CAD.
Atrial fibrillation..
BPH
Plan
Respiratory decompensation, likely due to influenza and right lower lobe community-acquired pneumonia and patient without previous lung disease.
Supplemental oxygen.
Increase activity and check ambulatory pulse oximetry prior to discharge.
Mucolytic.
Incentive spirometry.
Aspiration precautions.
Nebulizers if needed-currently not bronchospastic.
Check cultures.
Empiric anabiotic-ceftriaxone and azithromycin-finite course.
Tamiflu per protocol.
Isolation per protocol.
Follow leukocytosis.
Trend troponin.
Consider cardiology evaluation.
Echocardiogram summarized below.
Monitor blood sugar.
Insulin supplementation as needed.
DVT prophylaxis-on Eliquis
Nutrition
Early mobilization.
Outpatient follow-up with primary to ensure pneumonia resolution-and follow-up with pulmonary if patient desires
Diagnostic data:
.
Chest x-ray 07/20/24-right basilar pneumonia.
Chest x-ray 07/22/24-stable right basilar pneumonia.
Echocardiogram 07/20/24-EF 50%, mild mitral regurgitation, PA systolic 55-60
Data Reviewed
-
EKG: Report reviewed by me
Radiology: Report reviewed by me
CT Scan: Report reviewed by me
Medical Tests (Nuc Med, Echo etc): Report reviewed by me
Labs: Labs reviewed by me
Old Records: Reviewed
Total Time Spent with Patient (in minutes): 75
--- NOTE | 2024-07-23 11:04 | W.PN.HOSP.TC ---
Today's Communication/Plan
-
Pulmonary consulted, ambulatory pulse ox on exertion.
Assessment / Plan
Assessment / Plan
Impression:
Patient is a pleasant 73 years old with history of diabetes, hypertension, BPH, A-fib, coronary artery disease , who was recently diagnosed with the flu on Friday at urgent care and started on Tamiflu.
Patient came to the ER status post fall, weakness, right shoulder pain found to have pneumonia, elevated troponin.
echo shows:
1. Left ventricle: Normal size and function with an estimated ejection
fraction of 50%. Mild inferolateral hypokinesis. Mild concentric LVH. Stage
I diastolic dysfunction
2. Right ventricle: Normal
3. Atria: Moderate left atrial dilation and mild right atrial dilation
4. Mitral valve: Mild mitral regurgitation
5. Aortic valve: Trileaflet. Aortic valve sclerosis. Trace aortic
insufficiency
6. Tricuspid valve: Mild to moderate tricuspid regurgitation with estimated
pulmonary artery systolic pressures of 55-60 mmHg consistent with moderate
pulmonary hypertension
7. No prior study for comparison
Patient continued to have right shoulder pain, orthopedic consulted
Overall shortness of breath improved but still with bilateral Rales and rhonchi.
Pulmonology consulted
Assessment/plan:
Severe sepsis with acute organ dysfunction secondary to flu/bacterial pneumonia.
Acute organ dysfunction in form of acute metabolic encephalopathy
Patient meets sepsis criteria on admission
WBCs 14.6
Temperature 102.9
Source of infection is flu/bacterial
Received IV fluid
IV antibiotic in form of Rocephin/Zithromax
Blood culture NTD
Urine culture NTD
Tylenol for fever
07/23
Pulmonology consulted
Status post fall with right shoulder pain
Imaging including right shoulder x-ray shows no acute fracture.
CT head and cervical spine shows no acute finding.
Fall precautions.
PT/OT consult.
Social service for discharge planning.
07/23
Appreciate orthopedic input
Right shoulder pain
Negative x-ray right show
Possible rotator cuff tear
Patient still having right shoulder pain and limitation of movement.
Orthopedic consulted.
Follow-up as outpatient
Elevated troponin
Possible type II [place]
Patient denies chest pain
Also with recent flu illness could be myocarditis.
Continue to follow troponin.
Echocardiogram shows:
1. Left ventricle: Normal size and function with an estimated ejection
fraction of 50%. Mild inferolateral hypokinesis. Mild concentric LVH. Stage
I diastolic dysfunction
2. Right ventricle: Normal
3. Atria: Moderate left atrial dilation and mild right atrial dilation
4. Mitral valve: Mild mitral regurgitation
5. Aortic valve: Trileaflet. Aortic valve sclerosis. Trace aortic
insufficiency
6. Tricuspid valve: Mild to moderate tricuspid regurgitation with estimated
pulmonary artery systolic pressures of 55-60 mmHg consistent with moderate
pulmonary hypertension
7. No prior study for comparison
History of coronary artery disease status post stent
No chest pain.
Echocardiogram ordered.
Continue Plavix/statin
Atrial flutter with controlled heart rate
Continue Eliquis
Bifascicular block
Noted on EKG
History of diabetes mellitus
Hold metformin for now and Jardiance
Insulin sliding scale
Diabetic diet
Hemoglobin A1c 7.2
Resume oral meds on discharge.
CODE STATUS: Full code
DVT prophylaxis: Eliquis
Diet: Diabetic diet.
Family communication: Discussed with and daughter at bedside
Disposition: Pulmonary consulted, ambulatory pulse ox on exertion.
Total time spent on today's encounter was 65 minutes which included time spent in counseling the patient/family regarding diagnosis and treatment plan as listed above, goals of care, and symptom management. Case was discussed with nursing staff,
specialists, and care coordinators/case management. All labs and imaging personally reviewed by me. Remainder the time spent in detailed review of previous records, lab data, imaging, and other medical provider documentation.
Anticipated Discharge: Within 24 hours
Subjective/Interval History
-
Date of Service: July 23, 2024
Patient seen and examined at bedside, denies any chest pain , patient stated that shortness of breath Improved but still was coughing, no abdominal pain, no nausea, no vomiting, no diarrhea or constipation.
Pulmonology consulted.
Objective Data
-
Labs:
Laboratory Results
07/23/24
07:30
WBC 9.4
Hgb 13.8
Hct 40.1
Plt Count 173 D
Sodium 134 L
Potassium 4.7
Chloride 102
Carbon Dioxide 24
BUN 31 H
Creatinine 1.1
Glucose 218 H
Calcium 7.9 L
Vital Signs:
Vital Signs
Temp Pulse Resp BP Pulse Ox
98.3 F 82 16 114/71 94
07/23/24 07:32 07/23/24 08:03 07/23/24 07:32 07/23/24 08:03 07/23/24 08:25
I&O
07/22/24 07/23/24 07/24/24
06:59 06:59 06:59
Intake Total 800 / 800 1920 / 1920 200 / 200
Output Total 1450 / 1450 900 / 900 180 / 180
Balance -650 / -650 1020 / 1020 20 / 20
Physical Exam
-
General: Well Developed, Well Nourished, No Apparent Distress and Comfortable
HEENT: Normocephalic, Atraumatic, Moist Mucous Membranes, No Ptosis, PERRLA and Nose Appears Normal
Respiratory: Rales, Rhonchi and Crackles
Cardiac: Regular Rhythm and S1/S2
Breast: Deferred by me
GI: Soft, Nontender, Nondistended and Normal Bowel Sounds
Genito-urinary: No Costovertebral Tender
Musculoskeletal: No Clubbing, No Cyanosis and Other (Right shoulder pain with limitation of range of movement)
Skin: Warm
Neuro: Awake, Alert, Oriented, AO x 3 and No Motor Deficits
Psych: Calm
Data Reviewed
-
Diagnostic Radiology: Image personally visualized and interpreted and Report Reviewed by me
CT Scan: Image personally visualized and interpreted and Report Reviewed by me
Ultrasound: Image personally visualized and interpreted and Report Reviewed by me
MRI: Image personally visualized and interpreted and Report Reviewed by me
Medical Tests (Nuc Med, Echo etc): Image personally visualized and interpreted and Report Reviewed by me
Labs: Labs Reviewed by me
Old Records: Reviewed
[2024-07-23 11:25] VITALS: BP 117/67; PULSE 80; O2SAT 93
[2024-07-23 11:35] VITALS: BP 117/67
[2024-07-23 11:46] LABS: Glucose - Point of Care 243 mg/dl (70-99)
[2024-07-23 12:09] VITALS: BP 117/67
--- NOTE | 2024-07-23 14:04 | W.DCSUMMARY ---
Discharge Summary
Discharge Data
Date of Admission: 07/20/24
Date of Discharge: 07/23/24
-
Pending Results: No
Hospital Course
Hospital course
Patient is a pleasant 73 years old with history of diabetes, hypertension, BPH, A-fib, coronary artery disease , who was recently diagnosed with the flu on Friday at urgent care and started on Tamiflu.
Patient came to the ER status post fall, weakness, right shoulder pain found to have pneumonia, elevated troponin.
echo shows:
1. Left ventricle: Normal size and function with an estimated ejection
fraction of 50%. Mild inferolateral hypokinesis. Mild concentric LVH. Stage
I diastolic dysfunction
2. Right ventricle: Normal
3. Atria: Moderate left atrial dilation and mild right atrial dilation
4. Mitral valve: Mild mitral regurgitation
5. Aortic valve: Trileaflet. Aortic valve sclerosis. Trace aortic
insufficiency
6. Tricuspid valve: Mild to moderate tricuspid regurgitation with estimated
pulmonary artery systolic pressures of 55-60 mmHg consistent with moderate
pulmonary hypertension
7. No prior study for comparison
Patient continued to have right shoulder pain, orthopedic consulted
Overall shortness of breath improved but still with bilateral Rales and rhonchi.
Pulmonology consulted, started on Mucinex.
For the patient's stay additional night since still have bilateral rails.
Patient passed ambulatory pulse ox on exertion.
Patient request to be discharged home today.
Will be discharged with nebulizer/DuoNebs/antibiotics
will follow up as outpatient with orthopedics/pulmonary..
During hospitalization patient was treated from the following
Severe sepsis with acute organ dysfunction secondary to flu/bacterial pneumonia.
Acute organ dysfunction in form of acute metabolic encephalopathy
Patient meets sepsis criteria on admission
WBCs 14.6
Temperature 102.9
Source of infection is flu/bacterial
Received IV fluid
IV antibiotic in form of Rocephin/Zithromax
Blood culture NTD
Urine culture NTD
Tylenol for fever
07/23
Pulmonology consulted
Status post fall with right shoulder pain
Imaging including right shoulder x-ray shows no acute fracture.
CT head and cervical spine shows no acute finding.
Fall precautions.
PT/OT consult.
Social service for discharge planning.
07/23
Appreciate orthopedic input
Right shoulder pain
Negative x-ray right show
Possible rotator cuff tear
Patient still having right shoulder pain and limitation of movement.
Orthopedic consulted.
Follow-up as outpatient
Elevated troponin
Possible type II PA
Patient denies chest pain
Also with recent flu illness could be myocarditis.
Continue to follow troponin.
Echocardiogram shows:
1. Left ventricle: Normal size and function with an estimated ejection
fraction of 50%. Mild inferolateral hypokinesis. Mild concentric LVH. Stage
I diastolic dysfunction
2. Right ventricle: Normal
3. Atria: Moderate left atrial dilation and mild right atrial dilation
4. Mitral valve: Mild mitral regurgitation
5. Aortic valve: Trileaflet. Aortic valve sclerosis. Trace aortic
insufficiency
6. Tricuspid valve: Mild to moderate tricuspid regurgitation with estimated
pulmonary artery systolic pressures of 55-60 mmHg consistent with moderate
pulmonary hypertension
7. No prior study for comparison
History of coronary artery disease status post stent
No chest pain.
Echocardiogram ordered.
Continue Plavix/statin
Atrial flutter with controlled heart rate
Continue Eliquis
Bifascicular block
Noted on EKG
History of diabetes mellitus
Hold metformin for now and Jardiance
Insulin sliding scale
Diabetic diet
Hemoglobin A1c 7.2
Resume oral meds on discharge.
CODE STATUS: Full code
DVT prophylaxis: Eliquis
Diet: Diabetic diet.
Family communication: Discussed with and daughter at bedside
Disposition: Pulmonary consulted, ambulatory pulse ox on exertion.
Total time spent on today's encounter was 40 minutes which included time spent in counseling the patient/family regarding diagnosis and treatment plan as listed above, goals of care, and symptom management. Case was discussed with nursing staff,
specialists, and care coordinators/case management. All labs and imaging personally reviewed by me. Remainder the time spent in detailed review of previous records, lab data, imaging, and other medical provider documentation.
Anticipated Discharge: Today
Discharge Plan
-
Patient Disposition: Home with Home Care
Discharge Diagnosis/Procedures: Severe sepsis with acute organ dysfunction secondary to flu/bacterial pneumonia.
Right shoulder pain.
Acute hypoxic respiratory failure,resolved.
Diet: Diabetic, Carb Controlled
Activity: With assistance and As tolerated
Other Services: PT and OT
Referrals:
[place] MD [Family Provider] -
Geoffrey Lorenz MD [Active] - in one to two weeks
Lico Martinez MD [Active] - in one to two weeks
Prescriptions:
New
(DME) walker Misc
See Rx Instructions .Route Qty: 1 0RF
Rx Instructions:
Diagnosis:
Ambulatory Dysfunction.
azithromycin [Zithromax] 500 mg tablet
500 mg PO DAILY 5 Days Qty: 5 0RF
ipratropium-albuterol 0.5 mg-3 mg(2.5 mg base)/3 mL Solution For Nebulization
3 ml inhalation R Q4HPRN PRN (Reason: wheezing/shortness of breath) 30 Days Qty: 180 0RF
guaifenesin 600 mg Tablet Extended Release 12hr
1,200 mg PO Q12 10 Days Qty: 40 0RF
(DME) nebulizers Misc
See Rx Instructions .Route Qty: 1 0RF
Rx Instructions:
As directed
cefuroxime axetil 500 mg tablet
500 mg PO BID 5 Days Qty: 10 0RF
Continued
metformin 500 mg Tablet
1,000 mg PO BID
acetaminophen [Tylenol] 325 mg Tablet
650 mg PO Q6HPRN PRN (Reason: mild pain)
clopidogrel [Plavix] 75 mg Tablet
75 mg PO DAILY
amlodipine [Norvasc] 5 mg Tablet
5 mg PO DAILY
losartan 25 mg Tablet
25 mg PO DAILY
rosuvastatin [Crestor] 40 mg Tablet
40 mg PO QPM
ranolazine 500 mg Tablet Extended Release 12 Hr
500 mg PO BID
Eliquis 5 mg Tablet
5 mg PO BID
Jardiance 25 mg Tablet
25 mg PO DAILY
nitroglycerin 0.4 mg Tablet, Sublingual
0.4 mg SUBLINGUAL Q5M PRN (Reason: chest pain)
levocetirizine 5 mg Tablet
5 mg PO QPM
cholecalciferol (vitamin D3) [Vitamin D3] 50 mcg (2,000 unit) Capsule
50 mcg PO DAILY
Discontinued
oseltamivir [Tamiflu] 75 mg Capsule
75 mg PO BID
Rx Instructions:
for 5 days starting 07/18/24
methylprednisolone [Medrol (Raj)] 4 mg Tablets,Dose Pack
0 mg PO PER PKG DIR
Discharge Orders:
Discharge Patient (As Directed); Ordered 07/23/24
Ordered By: Van Nash
Discharge Date and Time
Print Language: CITIZEN OF [place]
[2024-07-23 14:34] VITALS: BP 124/74
--- NOTE | 2024-07-23 14:47 | VNURNOTE ---
Home Health Liaison met with patient, spouse, and daughter at bedside to discuss [facility] nurse/therapy, visits, schedule and homebound status. Clarified homebound criteria for [facility] per insurance's rules. Answered all questions. All are agreeable and
understand that visits at home will be 2-3 x per week to assess and teach medical management. All are aware that [facility] will contact them for start of care in 1-2 days after discharge from .
[facility] referral completed in [facility]. LUPE Higuera updated.
--- NOTE | 2024-07-23 17:58 | CM ---
Patient with Dx sepsis, PNA, fall w right shoulder pain. PT/OT recommend HH.
Met with patient, and daughter;
all agree to discharge to home today. IMM completed.
Patient and agree to [facility].
They are aware of RW issued by PT.
Patient & agree to purchase nebulizer at their pharmacy and are aware of script.
Script obtained from Dr Nash for RW & nebulizer.
Message with OSCAR Ruffin; informed her of script for RW- RW was provided to patient.
Spoke with pharmacy, [facility]; they do carry nebulizers that cost $32, insurance not accepted for this.
Plan home today with [facility], with RW, with script for nebulizer, with family.
== END 2024-07-23 15:57 | disposition home health service (06) | DRG 871 ==
LOC: 1 ACUTE 16:12
PROVIDERS: Nurse Practitioner; Nurse Practitioner Family; ADMITTING PHYSICIAN General Practice; CONSULT PHYSICIAN Internal Medicine Critical Care Medicine; CONSULT PHYSICIAN Orthopaedic Surgery; EMERGENCY PHYSICIAN Student in an Organized Health Care Education/Training Program; FAMILY PHYSICIAN Internal Medicine
DX: A41.9 Sepsis, unspecified organism (principal); G93.41 Metabolic encephalopathy; J15.9 Unspecified bacterial pneumonia; J96.01 Acute respiratory failure with hypoxia; I21.A1 Myocardial infarction type 2; J18.9 Pneumonia, unspecified organism; I48.92 Unspecified atrial flutter; E87.1 Hypo-osmolality and hyponatremia; I45.2 Bifascicular block; R65.20 Severe sepsis without septic shock; Z79.01 Long term (current) use of anticoagulants; Z79.02 Long term (current) use of antithrombotics/antiplatelets; Z11.52 Encounter for screening for COVID-19; E11.65 Type 2 diabetes mellitus with hyperglycemia; I48.91 Unspecified atrial fibrillation; I70.0 Atherosclerosis of aorta; Z79.82 Long term (current) use of aspirin
CPT/HCPCS: 70450; 71046; 72125; 73030; 80048; 80053; 81003; 81015; 82962; 83036; 83605; 83735; 84484; 85025; 85027; 87040; 87086; 87502; 87811; 93005; 93306; 94640; 94669; 96361; 96365; 96375; 97116; 97535; 99285